=== PATIENT | male | born 1980 | race Caucasian/White ===

== ENCOUNTER 2019-03-30 07:45 | Emergency (ER) | payer OTHER ==
[2019-03-30] MEDS ORDERED: XYLOCAINE 1% HCL 20 ML MDV IJ ONE (08:00)
[2019-03-30] MEDS ORDERED: BACIGUENT PACKET TP ONE (08:00)
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
[2019-03-30] MEDS ORDERED: KEFLEX 500 MG ONE (08:24)
[2019-03-30] MEDS ORDERED: KEFLEX 500 MG PO ONE (08:26)
[2019-03-30 08:38] VITALS: BP 120/70; PULSE 78; O2SAT 97
== END 2019-03-30 08:40 | disposition home or self-care (01) ==
LOC: ED 07:45
DX: S00.532A Contusion of oral cavity, initial encounter (principal); S01.511A Laceration without foreign body of lip, initial encounter; Y04.0XXA Assault by unarmed brawl or fight, initial encounter
CPT/HCPCS: 12011; 99283; A9270-GY

== ENCOUNTER 2021-02-15 21:32 | Emergency (ER) | payer MEDICAID, OTHER ==
[2021-02-15 21:49] VITALS: O2SAT 98
[2021-02-15 22:37] VITALS: BP 131/84; PULSE 91
[2021-02-15 22:42] LABS: Appearance CLEAR (CLEAR); Bilirubin NEGATIVE (NEGATIVE); Blood NEGATIVE Ery/ul (0-5); Glucose NEGATIVE (NEGATIVE); Ketones NEGATIVE (NEGATIVE); Leukocyte Esterase NEGATIVE (NEGATIVE); Mucus SLIGHT /HPF (NEGATIVE); Nitrite NEGATIVE (NEGATIVE); Protein,Urine Dip NEGATIVE (Negative); Specific Gravity 1.002 (1.005-1.025); Urobilinogen NEGATIVE mg/dL (0-1)
[2021-02-15 22:44] LABS: Absolute Neutrophil Ct (ANC) 6.59 (1.4-6.9); BASOPHIL % 0.2 % (0.0-0.4); Basophil (Absolute #) 0.02 (0-0.4); Eosinophil % 1.4 % (0.00-5.0); Eosinophil (Absolute #) 0.16 (0-0.5); Hematocrit 48.5 % (42-50); Hemoglobin 15.7 gm/dl (12.5-18.0); Lymphocyte (Absolute #) 4.01 (1.0-4.6); Lymphocytes % 34.3 % (24.0-44.0); Mean Cell Volume 91.5 fl (78-100); Mean Corpuscular Hemoglobin 29.6 pg (26-32); Mean Corpuscular Hgb Concent. 32.4 g/dl (32-36); Mean Platelet Volume 10.1 fl (7.5-11.0); Monocytes % 7.7 % (0.0-12.0); Neutrophil % 56.4 % (36.0-66.0); Platelet Count 295 K/mm3 (150-450); Red Cell Distribution Width 14.1 % (11.5-14.0); White Blood Count 11.7 K/mm3 (4.0-10.5)
[2021-02-15 22:47] LABS: ACETAMINOPHEN < 10 ug/ml (10-30); ALBUMIN 4.7 g/dL (3.5-5.0); ALKALINE PHOSPHATASE 55 U/L (38-126); ANION GAP 20.7 MEQ/L (5-15); BLOOD UREA NITROGEN 9 mg/dL (9-20); CHLORIDE 106 mmol/L (98-107); Calcium 9.5 mg/dL (8.4-10.2); Carbon Dioxide 22 mmol/L (22-30); Creatinine 1 0.91 mg/dL (0.66-1.25); EST GLOMERULAR FILTRATION RATE > 60.0 ML/MIN; ETHYL ALCOHOL 242 mg/dL (0-10); Glucose 73 mg/dL (74-106); Potassium 3.6 mmol/L (3.5-5.1); SALICYLATE < 1.0 mg/dL (2-20); SGOT/AST 28 U/L (17-59); SGPT/ALT 24 U/L (0-50); SODIUM 145 mmol/L (137-145); Total Protein 7.8 g/dL (6.3-8.2)
[2021-02-15 22:56] LABS: Amphetamine,Urine NEGATIVE (NEGATIVE); Barbiturate,Urine NEGATIVE (NEGATIVE); Benzodiazepine,Urine NEGATIVE (NEGATIVE); Cocaine,Urine NEGATIVE (NEGATIVE); Methadone,Urine NEGATIVE (NEGATIVE); Opiate,Urine NEGATIVE (NEGATIVE); PCP,Urine NEGATIVE (NEGATIVE); THC,Urine NEGATIVE (NEGATIVE)
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
== END 2021-02-15 23:43 | disposition home or self-care (01) ==
LOC: ED 21:32
DX: F10.10 Alcohol abuse, uncomplicated (principal)
CPT/HCPCS: 36415; 80053; 80307; 81001; 85025; 99283; G0480